=== PATIENT | male | born 1985 | race Caucasian/White ===

== ENCOUNTER 2022-01-08 17:22 | Inpatient (IN) | payer OTHER ==
[2022-01-08 18:12] VITALS: BMI 22.2
[2022-01-08] MEDS ORDERED: BISMUTH SUBSALICYLATE 524 MG/30 ML PO PRN (19:08)
[2022-01-08] MEDS ORDERED: NALOXONE HCL (KLOXXADO) 8 MG SPRAY NS PRN (19:08)
[2022-01-08] MEDS ORDERED: cloNIDine HCL 0.1 MG TABLET PO PRN (19:08)
[2022-01-08] MEDS ORDERED: methaDONE HCL 10 MG TABLET (FOR DETOX USE ONLY) PO ONE (19:08)
[2022-01-08] MEDS ORDERED: POLYETHYLENE GLYCOL (HEALTHYLAX) 3350 17 GM PACKET PO PRN (19:08)
[2022-01-08] MEDS ORDERED: LOPERAMIDE HCL 2 MG CAPSULE PO PRN (19:08)
[2022-01-08] MEDS ORDERED: DICYCLOMINE HCL 10 MG CAPSULE PO PRN (19:08)
[2022-01-08] MEDS ORDERED: BENZOCAINE/MENTHOL (CHLORASEPTIC ) LOZENGE MM PRN (19:08)
[2022-01-08] MEDS ORDERED: MAG HYDROX/AL HYDROX/SIMETH 30 ML UNIT-DOSE CUP PO PRN (19:08)
[2022-01-08] MEDS ORDERED: MAGNESIUM HYDROX 2400MG/30ML ORAL SUSPENSION 30 ML CUP PO PRN (19:08)
[2022-01-08] MEDS ORDERED: IBUPROFEN 400 MG TABLET (FP) PO PRN (19:08)
[2022-01-08] MEDS ORDERED: ACETAMINOPHEN 325 MG TABLET (FP) PO PRN ×2 (19:08)
[2022-01-08] MEDS ORDERED: P-EPHED 60MG/TRIPROLIDI 2.5MG TABLET PO PRN (20:07)
[2022-01-08] MEDS: MELATONIN 5 MG TABLETS PO SCH (22:15)
[2022-01-08] MEDS: NICOTINE 10 MG CARTRIDGE (INHALER) IH PRN (22:15)
[2022-01-08] MEDS: THIAMINE HCL 100 MG TABLET (FP) PO SCH (22:15)
[2022-01-08] MEDS: diazePAM 5 MG TABLET PO SCH (22:15)
[2022-01-09] MEDS: diazePAM 5 MG TABLET PO SCH ×4 (05:22→22:32)
[2022-01-09] MEDS: METHOCARBAMOL 500 MG TABLET PO PRN ×3 (05:25→22:32)
[2022-01-09] MEDS: PRENATAL VITAMINS W/ FOLIC ACID TABLET (FP) PO SCH (10:13)
[2022-01-09] MEDS: BACITRACIN 15 GM TUBE TOPICAL OINTMENT TP SCH ×2 (11:51→22:32)
[2022-01-09] MEDS: SODIUM CHLORIDE NASAL SPRAY 44 ML BOTTLE NS PRN (12:27)
[2022-01-09 12:50] LABS: ALBUMIN 3.4 g/dl (3.4-5.0); CALCIUM 9.1 mg/dL (8.5-10.1)
[2022-01-09 12:53] LABS: CREATININE 0.7 mg/dL (0.55-1.3)
[2022-01-09 12:54] LABS: BILIRUBIN,TOTAL 0.5 mg/dL (0.2-1); HEMATOCRIT 38.4 % (35.4-49); HEMOGLOBIN 13.2 GM/dL (11.7-16.9); MCH 33.3 pg (25.7-33.7); MCHC 34.4 g/dl (32.0-35.9); MEAN CELL VOLUME 96.8 fl (80-96); MEAN PLT VOLUME 9.5 fl (7.5-11.1); PLATELET COUNT 239 10^3/uL (134-434); RBC 3.97 M/mm3 (4.00-5.60); RDW 12.8 % (11.9-15.9); TOT PROT 6.2 g/dl (6.4-8.2); WHITE BLOOD COUNT 5.4 K/mm3 (4.0-10.0)
[2022-01-09] MEDS: NICOTINE 10 MG CARTRIDGE (INHALER) IH PRN (13:02)
[2022-01-09] MEDS: diazePAM 5 MG TABLET PO PRN ×2 (15:28→20:14)
[2022-01-09] MEDS: MELATONIN 5 MG TABLETS PO SCH (22:31)
[2022-01-09] MEDS: THIAMINE HCL 100 MG TABLET (FP) PO SCH (22:32)
[2022-01-10] MEDS: diazePAM 5 MG TABLET PO PRN ×3 (04:18→18:32)
[2022-01-10] MEDS: diazePAM 5 MG TABLET PO SCH ×3 (05:53→22:16)
[2022-01-10] MEDS: METHOCARBAMOL 500 MG TABLET PO PRN ×2 (09:39→18:32)
[2022-01-10] MEDS: PRENATAL VITAMINS W/ FOLIC ACID TABLET (FP) PO SCH (09:40)
[2022-01-10] MEDS: BACITRACIN 15 GM TUBE TOPICAL OINTMENT TP SCH ×2 (09:40→22:17)
[2022-01-10] MEDS: SODIUM CHLORIDE NASAL SPRAY 44 ML BOTTLE NS PRN (09:42)
[2022-01-10] MEDS ORDERED: methaDONE HCL 10 MG TABLET (FOR DETOX USE ONLY) PO ONE (10:00)
[2022-01-10] MEDS: NICOTINE 10 MG CARTRIDGE (INHALER) IH PRN (10:14)
[2022-01-10] MEDS: IBUPROFEN 600 MG TABLET (FP) PO PRN (16:08)
[2022-01-10 20:54] VITALS: RESP 18
[2022-01-10] MEDS: MELATONIN 5 MG TABLETS PO SCH (22:16)
[2022-01-10] MEDS: THIAMINE HCL 100 MG TABLET (FP) PO SCH (22:16)
[2022-01-11] MEDS: diazePAM 5 MG TABLET PO PRN (03:28)
[2022-01-11] MEDS: METHOCARBAMOL 500 MG TABLET PO PRN (03:28)
[2022-01-11] MEDS ORDERED: diazePAM 5 MG TABLET PO SCH (06:00)
[2022-01-11 08:53] VITALS: BP 124/66; PULSE 72; TEMP 98.3
[2022-01-11] MEDS: IBUPROFEN 600 MG TABLET (FP) PO PRN (09:22)
[2022-01-12] MEDS ORDERED: diazePAM 5 MG TABLET PO ONE (06:00)
[2022-01-12] MEDS ORDERED: methaDONE HCL 10 MG TABLET (FOR DETOX USE ONLY) PO ONE (10:00)
== END 2022-01-11 09:26 | disposition left against medical advice (07) | DRG 770 ==
LOC: YASAS 17:22 → Y3N 19:13
PROVIDERS: ADMIT Allergy & Immunology; ATTEND Surgery
PROC: HZ2ZZZZ Detoxification Services for Substance Abuse Treatment (ICD-10-PCS; principal; 2022-01-08)
DX: F11.23 Opioid dependence with withdrawal (principal); F13.232 Sedative, hypnotic or anxiolytic dependence with withdrawal with perceptual disturbance; F14.20 Cocaine dependence, uncomplicated; F12.20 Cannabis dependence, uncomplicated; F17.210 Nicotine dependence, cigarettes, uncomplicated
CPT/HCPCS: 36415; 80053; 85027; 86780; C9803-CS; U0003; U0005

== ENCOUNTER 2022-03-03 19:07 | Inpatient (IN) | payer OTHER ==
[2022-03-03 19:56] VITALS: BMI 19.3
[2022-03-03] MEDS ORDERED: NALOXONE HCL (KLOXXADO) 8 MG SPRAY NS PRN (21:02)
[2022-03-03] MEDS ORDERED: IBUPROFEN 400 MG TABLET (FP) PO PRN (21:02)
[2022-03-03] MEDS ORDERED: DICYCLOMINE HCL 10 MG CAPSULE PO PRN (21:02)
[2022-03-03] MEDS ORDERED: MAGNESIUM HYDROX 2400MG/30ML ORAL SUSPENSION 30 ML CUP PO PRN (21:02)
[2022-03-03] MEDS ORDERED: ONDANSETRON *ODT* 4 MG TABLET SL PRN (21:02)
[2022-03-03] MEDS ORDERED: ACETAMINOPHEN 325 MG TABLET (FP) PO PRN ×2 (21:02)
[2022-03-03] MEDS ORDERED: BENZOCAINE/MENTHOL (CHLORASEPTIC ) LOZENGE MM PRN (21:02)
[2022-03-03] MEDS ORDERED: MAG HYDROX/AL HYDROX/SIMETH 30 ML UNIT-DOSE CUP PO PRN (21:02)
[2022-03-03] MEDS ORDERED: IBUPROFEN 600 MG TABLET (FP) PO PRN (21:02)
[2022-03-03] MEDS ORDERED: POLYETHYLENE GLYCOL (HEALTHYLAX) 3350 17 GM PACKET PO PRN (21:02)
[2022-03-03] MEDS ORDERED: LOPERAMIDE HCL 2 MG CAPSULE PO PRN (21:02)
[2022-03-03] MEDS ORDERED: BISMUTH SUBSALICYLATE 524 MG/30 ML PO PRN (21:02)
[2022-03-03] MEDS ORDERED: cloNIDine HCL 0.1 MG TABLET PO PRN (21:07)
[2022-03-03] MEDS ORDERED: MELATONIN 5 MG TABLETS PO SCH (22:00)
[2022-03-03] MEDS ORDERED: methaDONE HCL 10 MG TABLET (FOR DETOX USE ONLY) PO ONE (22:02)
[2022-03-03] MEDS: METHOCARBAMOL 500 MG TABLET PO PRN (22:18)
[2022-03-03] MEDS: THIAMINE HCL 100 MG TABLET (FP) PO SCH (22:18)
[2022-03-03] MEDS: diazePAM 5 MG TABLET PO SCH (22:19)
[2022-03-04] MEDS: diazePAM 5 MG TABLET PO SCH ×4 (06:01→22:26)
[2022-03-04] MEDS: PRENATAL VITAMINS W/ FOLIC ACID TABLET (FP) PO SCH (10:20)
[2022-03-04] MEDS: METHOCARBAMOL 500 MG TABLET PO PRN ×2 (10:27→22:28)
[2022-03-04] MEDS: NICOTINE 10 MG CARTRIDGE (INHALER) IH PRN (10:29)
[2022-03-04] MEDS: NICOTINE 14 MG/24 HOURS TOPICAL PATCH TD SCH (10:30)
[2022-03-04 13:07] LABS: CHLORIDE 97 mmol/L (98-107); SODIUM 137 mmol/L (136-145)
[2022-03-04 13:10] LABS: CALCIUM 8.6 mg/dL (8.5-10.1)
[2022-03-04 13:11] LABS: ALBUMIN 3.7 g/dl (3.4-5.0); BLOOD UREA NITROGEN 21.1 mg/dL (7-18); CO2 34 mmol/L (21-32); GLUCOSE,RANDOM 100 mg/dL (74-106)
[2022-03-04 13:15] LABS: SGOT/AST 10 U/L (15-37); SGPT/ALT 20 U/L (13-61)
[2022-03-04 13:16] LABS: BILIRUBIN,TOTAL 0.9 mg/dL (0.2-1); TOT PROT 6.7 g/dl (6.4-8.2)
[2022-03-04 13:17] LABS: ALK PHOS 60 U/L (45-117)
[2022-03-04 13:19] LABS: ANION GAP 6 MMOL/L (8-16)
[2022-03-04 13:22] LABS: HEMATOCRIT 41.5 % (35.4-49); HEMOGLOBIN 14.4 GM/dL (11.7-16.9); MCH 32.2 pg (25.7-33.7); MCHC 34.6 g/dl (32.0-35.9); MEAN CELL VOLUME 93.1 fl (80-96); PLATELET COUNT 212 10^3/uL (134-434); RBC 4.46 M/mm3 (4.00-5.60); RDW 12.3 % (11.9-15.9); WHITE BLOOD COUNT 6.6 K/mm3 (4.0-10.0)
[2022-03-04] MEDS ORDERED: POTASSIUM CHLORIDE ORAL LIQUID 20 MEQ/15 ML PO ONE (14:00)
[2022-03-04] MEDS: POTASSIUM CHLORIDE ORAL LIQUID 20 MEQ/15 ML PO SCH (22:24)
[2022-03-04] MEDS: THIAMINE HCL 100 MG TABLET (FP) PO SCH (22:25)
[2022-03-04] MEDS: MELATONIN 5 MG TABLETS PO SCH (22:25)
[2022-03-05] MEDS: diazePAM 5 MG TABLET PO SCH ×3 (05:27→22:07)
[2022-03-05] MEDS ORDERED: methaDONE HCL 10 MG TABLET (FOR DETOX USE ONLY) PO ONE (10:00)
[2022-03-05] MEDS: diazePAM 5 MG TABLET PO PRN ×3 (10:24→19:52)
[2022-03-05] MEDS: PRENATAL VITAMINS W/ FOLIC ACID TABLET (FP) PO SCH (10:24)
[2022-03-05] MEDS: POTASSIUM CHLORIDE ORAL LIQUID 20 MEQ/15 ML PO SCH (10:25)
[2022-03-05] MEDS: NICOTINE 14 MG/24 HOURS TOPICAL PATCH TD SCH (10:25)
[2022-03-05] MEDS ORDERED: TETRAHYDROZOLINE HCL EYE DROPS OD PRN (13:10)
[2022-03-05] MEDS: NICOTINE 10 MG CARTRIDGE (INHALER) IH PRN (13:53)
[2022-03-05] MEDS: METHOCARBAMOL 500 MG TABLET PO PRN (22:06)
[2022-03-05] MEDS: MELATONIN 5 MG TABLETS PO SCH (22:06)
[2022-03-05] MEDS: THIAMINE HCL 100 MG TABLET (FP) PO SCH (22:06)
[2022-03-06] MEDS: diazePAM 5 MG TABLET PO PRN ×2 (01:09→10:30)
[2022-03-06] MEDS: diazePAM 5 MG TABLET PO SCH ×2 (05:39→18:00)
[2022-03-06] MEDS: NICOTINE 14 MG/24 HOURS TOPICAL PATCH TD SCH (10:35)
[2022-03-06] MEDS: PRENATAL VITAMINS W/ FOLIC ACID TABLET (FP) PO SCH (10:35)
[2022-03-06] MEDS: NICOTINE 10 MG CARTRIDGE (INHALER) IH PRN (15:13)
[2022-03-06] MEDS: METHOCARBAMOL 500 MG TABLET PO PRN ×2 (15:14→22:08)
[2022-03-06] MEDS: THIAMINE HCL 100 MG TABLET (FP) PO SCH (22:08)
[2022-03-06] MEDS: MELATONIN 5 MG TABLETS PO SCH (22:08)
[2022-03-07] MEDS ORDERED: diazePAM 5 MG TABLET PO ONE (06:00)
[2022-03-07] MEDS: NICOTINE 14 MG/24 HOURS TOPICAL PATCH TD SCH (09:46)
[2022-03-07] MEDS: PRENATAL VITAMINS W/ FOLIC ACID TABLET (FP) PO SCH (09:46)
[2022-03-07] MEDS: NICOTINE 10 MG CARTRIDGE (INHALER) IH PRN ×2 (09:48→22:56)
[2022-03-07] MEDS ORDERED: methaDONE HCL 10 MG TABLET (FOR DETOX USE ONLY) PO ONE (10:00)
[2022-03-07] MEDS: METHOCARBAMOL 500 MG TABLET PO PRN ×2 (15:44→22:28)
[2022-03-07] MEDS: MELATONIN 5 MG TABLETS PO SCH (22:26)
[2022-03-07] MEDS: THIAMINE HCL 100 MG TABLET (FP) PO SCH (22:26)
[2022-03-08 06:25] VITALS: RESP 16; TEMP 98.2
[2022-03-08 09:10] VITALS: BP 129/78; PULSE 96
== END 2022-03-08 08:57 | disposition home or self-care (01) | DRG 773 ==
LOC: YASAS 19:07 → Y3N 21:19
PROVIDERS: ADMIT Allergy & Immunology; ATTEND Surgery
PROC: HZ2ZZZZ Detoxification Services for Substance Abuse Treatment (ICD-10-PCS; principal; 2022-03-03)
DX: F11.23 Opioid dependence with withdrawal (principal); F13.232 Sedative, hypnotic or anxiolytic dependence with withdrawal with perceptual disturbance; F12.20 Cannabis dependence, uncomplicated; F17.210 Nicotine dependence, cigarettes, uncomplicated; F32.A Depression, unspecified; E87.6 Hypokalemia
CPT/HCPCS: 36415; 80053; 84132; 85027; 86780; 93005; 93010; C9803-CS; U0003; U0005

== ENCOUNTER 2022-07-08 16:59 | Inpatient (IN) | payer OTHER ==
[2022-07-08 19:11] VITALS: BMI 20.5
[2022-07-08] MEDS ORDERED: P-EPHED 60MG/TRIPROLIDI 2.5MG TABLET PO PRN (21:01)
[2022-07-08] MEDS ORDERED: NICOTINE POLACRILEX 2 MG GUM BUC PRN (21:01)
[2022-07-08] MEDS ORDERED: IBUPROFEN 400 MG TABLET (FP) PO PRN (21:01)
[2022-07-08] MEDS ORDERED: ONDANSETRON *ODT* 4 MG TABLET SL PRN (21:01)
[2022-07-08] MEDS ORDERED: MAGNESIUM HYDROX 2400MG/30ML ORAL SUSPENSION 30 ML CUP PO PRN (21:01)
[2022-07-08] MEDS ORDERED: LOPERAMIDE HCL 2 MG CAPSULE PO PRN (21:01)
[2022-07-08] MEDS ORDERED: NALOXONE HCL (KLOXXADO) 8 MG SPRAY NS PRN (21:01)
[2022-07-08] MEDS ORDERED: ACETAMINOPHEN 325 MG TABLET (FP) PO PRN ×2 (21:01)
[2022-07-08] MEDS ORDERED: BENZOCAINE/MENTHOL (CHLORASEPTIC ) LOZENGE MM PRN (21:01)
[2022-07-08] MEDS ORDERED: DICYCLOMINE HCL 10 MG CAPSULE PO PRN (21:01)
[2022-07-08] MEDS ORDERED: POLYETHYLENE GLYCOL (HEALTHYLAX) 3350 17 GM PACKET PO PRN (21:01)
[2022-07-08] MEDS ORDERED: BENZONATATE 200 MG CAPSULE PO PRN (21:01)
[2022-07-08] MEDS ORDERED: MAG HYDROX/AL HYDROX/SIMETH 30 ML UNIT-DOSE CUP PO PRN (21:01)
[2022-07-08] MEDS ORDERED: guaiFENesin 600 MG TABLET.ER (FP) PO PRN (21:01)
[2022-07-08] MEDS ORDERED: NALOXONE HCL 0.4 MG/ML VIAL IM PRN (21:01)
[2022-07-08] MEDS ORDERED: BISMUTH SUBSALICYLATE 524 MG/30 ML PO PRN (21:01)
[2022-07-08] MEDS ORDERED: diazePAM 5 MG TABLET PO PRN (21:03)
[2022-07-08] MEDS ORDERED: cloNIDine HCL 0.1 MG TABLET PO PRN (21:04)
[2022-07-08] MEDS ORDERED: methaDONE HCL 10 MG TABLET (FOR DETOX USE ONLY) PO ONE (21:04)
[2022-07-08] MEDS ORDERED: methaDONE HCL 10 MG TABLET (FOR DETOX USE ONLY) ONE (21:45)
[2022-07-08] MEDS ORDERED: ACETAMINOPHEN 325 MG TABLET (FP) ONE (21:46)
[2022-07-08] MEDS: diazePAM 5 MG TABLET PO SCH (22:36)
[2022-07-08] MEDS: MELATONIN 5 MG TABLETS PO SCH (22:36)
[2022-07-08] MEDS: METHOCARBAMOL 500 MG TABLET PO PRN (22:36)
[2022-07-08] MEDS: THIAMINE HCL 100 MG TABLET (FP) PO SCH (22:36)
[2022-07-09] MEDS: FLUTICASONE PROP 0.05% 16 GM NASAL SPRAY NS SCH ×3 (00:40→22:11)
[2022-07-09] MEDS: diazePAM 5 MG TABLET PO SCH ×4 (05:29→22:11)
[2022-07-09] MEDS ORDERED: methaDONE HCL 10 MG TABLET (FOR DETOX USE ONLY) PO ONE (10:00)
[2022-07-09] MEDS: PRENATAL VITAMINS W/ FOLIC ACID TABLET (FP) PO SCH (10:02)
[2022-07-09] MEDS: NICOTINE 14 MG/24 HOURS TOPICAL PATCH TD SCH (10:05)
[2022-07-09] MEDS: METHOCARBAMOL 500 MG TABLET PO PRN ×2 (10:25→22:11)
[2022-07-09 11:39] LABS: HEMATOCRIT 40.4 % (35.4-49); MCH 32.8 pg (25.7-33.7); MCHC 34.5 g/dl (32.0-35.9); MEAN CELL VOLUME 95.1 fl (80-96); MEAN PLT VOLUME 11.6 fl (7.5-11.1); PLATELET COUNT 164 10^3/uL (134-434); RBC 4.25 M/mm3 (4.00-5.60); RDW 12.7 % (11.9-15.9); WHITE BLOOD COUNT 4.6 K/mm3 (4.0-10.0)
[2022-07-09 11:48] LABS: POTASSIUM 4.1 mmol/L (3.5-5.1)
[2022-07-09 11:50] LABS: CALCIUM 9.2 mg/dL (8.5-10.1)
[2022-07-09 11:51] LABS: ALBUMIN 3.5 g/dl (3.4-5.0); BLOOD UREA NITROGEN 12.8 mg/dL (7-18)
[2022-07-09 11:53] LABS: CREATININE 0.7 mg/dL (0.55-1.3)
[2022-07-09 11:55] LABS: BILIRUBIN,TOTAL 0.4 mg/dL (0.2-1); TOT PROT 6.1 g/dl (6.4-8.2)
[2022-07-09] MEDS: THIAMINE HCL 100 MG TABLET (FP) PO SCH (22:11)
[2022-07-09] MEDS: MELATONIN 5 MG TABLETS PO SCH (22:11)
[2022-07-10] MEDS: diazePAM 5 MG TABLET PO SCH ×3 (06:07→22:04)
[2022-07-10] MEDS: IBUPROFEN 600 MG TABLET (FP) PO PRN (10:05)
[2022-07-10] MEDS: FLUTICASONE PROP 0.05% 16 GM NASAL SPRAY NS SCH ×2 (10:06→22:04)
[2022-07-10] MEDS: PRENATAL VITAMINS W/ FOLIC ACID TABLET (FP) PO SCH (10:06)
[2022-07-10] MEDS: NICOTINE 14 MG/24 HOURS TOPICAL PATCH TD SCH (10:08)
[2022-07-10] MEDS: METHOCARBAMOL 500 MG TABLET PO PRN ×2 (11:33→22:05)
[2022-07-10] MEDS: METHYL SALICYLATE/MENTHOL OINT 30 GM TUBE TP SCH (22:04)
[2022-07-10] MEDS: MELATONIN 5 MG TABLETS PO SCH (22:05)
[2022-07-10] MEDS: THIAMINE HCL 100 MG TABLET (FP) PO SCH (22:05)
[2022-07-11] MEDS: diazePAM 5 MG TABLET PO SCH ×2 (05:47→17:40)
[2022-07-11] MEDS ORDERED: methaDONE HCL 10 MG TABLET (FOR DETOX USE ONLY) PO ONE (10:00)
[2022-07-11] MEDS: PRENATAL VITAMINS W/ FOLIC ACID TABLET (FP) PO SCH (10:05)
[2022-07-11] MEDS: IBUPROFEN 600 MG TABLET (FP) PO PRN (10:07)
[2022-07-11] MEDS: METHOCARBAMOL 500 MG TABLET PO PRN ×2 (10:09→22:21)
[2022-07-11] MEDS: METHYL SALICYLATE/MENTHOL OINT 30 GM TUBE TP SCH ×2 (10:21→22:21)
[2022-07-11] MEDS: FLUTICASONE PROP 0.05% 16 GM NASAL SPRAY NS SCH ×2 (10:21→22:21)
[2022-07-11] MEDS: NICOTINE 14 MG/24 HOURS TOPICAL PATCH TD SCH (10:22)
[2022-07-11 21:30] VITALS: PULSE 79
[2022-07-11] MEDS: THIAMINE HCL 100 MG TABLET (FP) PO SCH (22:21)
[2022-07-11] MEDS: MELATONIN 5 MG TABLETS PO SCH (22:21)
[2022-07-12] MEDS ORDERED: methaDONE HCL 10 MG TABLET (FOR DETOX USE ONLY) PO ONE (05:00)
[2022-07-12] MEDS ORDERED: diazePAM 5 MG TABLET PO ONE (06:00)
[2022-07-12 06:18] VITALS: BP 141/71; RESP 16; TEMP 97.8
== END 2022-07-12 06:45 | disposition home or self-care (01) | DRG 773 ==
LOC: YASAS 16:59 → Y3N 21:33
PROVIDERS: ADMIT Allergy & Immunology; ATTEND Surgery
PROC: HZ2ZZZZ Detoxification Services for Substance Abuse Treatment (ICD-10-PCS; principal; 2022-07-08)
DX: F11.23 Opioid dependence with withdrawal (principal); F10.230 Alcohol dependence with withdrawal, uncomplicated; F13.232 Sedative, hypnotic or anxiolytic dependence with withdrawal with perceptual disturbance; F12.20 Cannabis dependence, uncomplicated; F17.210 Nicotine dependence, cigarettes, uncomplicated
CPT/HCPCS: 36415; 80053; 85027; 86780; 87811; C9803-CS; U0003; U0005

== ENCOUNTER 2022-09-26 15:19 | Inpatient (IN) | payer OTHER ==
[2022-09-26 16:57] VITALS: BMI 21.4
[2022-09-26] MEDS ORDERED: LOPERAMIDE HCL 2 MG CAPSULE PO PRN (18:06)
[2022-09-26] MEDS ORDERED: POLYETHYLENE GLYCOL (HEALTHYLAX) 3350 17 GM PACKET PO PRN (18:06)
[2022-09-26] MEDS ORDERED: DICYCLOMINE HCL 10 MG CAPSULE PO PRN (18:06)
[2022-09-26] MEDS ORDERED: NALOXONE HCL (KLOXXADO) 8 MG SPRAY NS PRN (18:06)
[2022-09-26] MEDS ORDERED: guaiFENesin 600 MG TABLET.ER (FP) PO PRN (18:06)
[2022-09-26] MEDS ORDERED: NALOXONE HCL 0.4 MG/ML VIAL IM PRN (18:06)
[2022-09-26] MEDS ORDERED: hydrOXYzine PAMOATE 25 MG CAPSULE (FP) PO PRN (18:06)
[2022-09-26] MEDS ORDERED: BISMUTH SUBSALICYLATE 524 MG/30 ML PO PRN (18:06)
[2022-09-26] MEDS ORDERED: ACETAMINOPHEN 325 MG TABLET (FP) PO PRN (18:06)
[2022-09-26] MEDS ORDERED: IBUPROFEN 400 MG TABLET (FP) PO PRN (18:06)
[2022-09-26] MEDS ORDERED: MAGNESIUM HYDROX 2400MG/30ML ORAL SUSPENSION 30 ML CUP PO PRN (18:06)
[2022-09-26] MEDS ORDERED: MAG HYDROX/AL HYDROX/SIMETH 30 ML UNIT-DOSE CUP PO PRN (18:06)
[2022-09-26] MEDS ORDERED: ONDANSETRON *ODT* 4 MG TABLET SL PRN (18:06)
[2022-09-26] MEDS ORDERED: BENZONATATE 200 MG CAPSULE PO PRN (18:06)
[2022-09-26] MEDS ORDERED: BENZOCAINE/MENTHOL (CHLORASEPTIC ) LOZENGE MM PRN (18:06)
[2022-09-26] MEDS: diazePAM 5 MG TABLET PO PRN (19:19)
[2022-09-26] MEDS: THIAMINE HCL 100 MG TABLET (FP) PO SCH (22:31)
[2022-09-26] MEDS: METHOCARBAMOL 500 MG TABLET PO PRN (22:31)
[2022-09-26] MEDS: diazePAM 5 MG TABLET PO SCH (22:31)
[2022-09-26] MEDS: MELATONIN 5 MG TABLETS PO SCH (22:31)
[2022-09-27] MEDS: diazePAM 5 MG TABLET PO SCH ×4 (05:42→22:33)
[2022-09-27] MEDS: PRENATAL VITAMINS W/ FOLIC ACID TABLET (FP) PO SCH (10:10)
[2022-09-27] MEDS: METHOCARBAMOL 500 MG TABLET PO PRN ×3 (10:12→22:34)
[2022-09-27 10:42] LABS: MCH 31.8 pg (25.7-33.7); MCHC 33.5 g/dl (32.0-35.9); MEAN CELL VOLUME 94.9 fl (80-96); MEAN PLT VOLUME 10.3 fl (7.5-11.1); PLATELET COUNT 207 10^3/uL (134-434); RBC 4.42 M/mm3 (4.00-5.60); RDW 12.8 % (11.9-15.9)
[2022-09-27 10:46] LABS: POTASSIUM 4.2 mmol/L (3.5-5.1)
[2022-09-27 10:49] LABS: ALBUMIN 3.7 g/dl (3.4-5.0); BLOOD UREA NITROGEN 9.5 mg/dL (7-18); CALCIUM 9.3 mg/dL (8.5-10.1)
[2022-09-27 10:52] LABS: CREATININE 0.8 mg/dL (0.55-1.3)
[2022-09-27 10:53] LABS: TOT PROT 6.8 g/dl (6.4-8.2)
[2022-09-27 10:54] LABS: BILIRUBIN,TOTAL 0.8 mg/dL (0.2-1)
[2022-09-27] MEDS: IBUPROFEN 600 MG TABLET (FP) PO PRN (14:03)
[2022-09-27] MEDS: NICOTINE POLACRILEX 2 MG GUM BUC PRN ×2 (16:02→22:36)
[2022-09-27] MEDS: THIAMINE HCL 100 MG TABLET (FP) PO SCH (22:32)
[2022-09-27] MEDS: MELATONIN 5 MG TABLETS PO SCH (22:32)
[2022-09-28] MEDS: diazePAM 5 MG TABLET PO PRN ×2 (00:51→08:52)
[2022-09-28] MEDS: FLUTICASONE PROP 0.05% 16 GM NASAL SPRAY NS SCH ×2 (01:11→09:42)
[2022-09-28] MEDS ORDERED: diazePAM 5 MG TABLET PO SCH (06:00)
[2022-09-28] MEDS: IBUPROFEN 600 MG TABLET (FP) PO PRN (08:52)
[2022-09-28] MEDS: METHOCARBAMOL 500 MG TABLET PO PRN (08:52)
[2022-09-28 09:23] VITALS: BP 137/84; PULSE 77; RESP 18; TEMP 97.6
[2022-09-28] MEDS: PRENATAL VITAMINS W/ FOLIC ACID TABLET (FP) PO SCH (09:42)
[2022-09-29] MEDS ORDERED: diazePAM 5 MG TABLET PO SCH (06:00)
[2022-09-30] MEDS ORDERED: diazePAM 5 MG TABLET PO ONE (06:00)
== END 2022-09-28 10:38 | disposition left against medical advice (07) | DRG 770 ==
LOC: YASAS 15:19 → Y6N 18:31
PROVIDERS: ADMIT Allergy & Immunology; ATTEND Allergy & Immunology
PROC: HZ2ZZZZ Detoxification Services for Substance Abuse Treatment (ICD-10-PCS; principal; 2022-09-26)
DX: F11.23 Opioid dependence with withdrawal (principal); F13.232 Sedative, hypnotic or anxiolytic dependence with withdrawal with perceptual disturbance; F12.20 Cannabis dependence, uncomplicated; F17.210 Nicotine dependence, cigarettes, uncomplicated; R09.81 Nasal congestion
CPT/HCPCS: 36415; 80053; 85027; 86780; 87635

== ENCOUNTER 2023-04-28 21:23 | Inpatient (IN) | payer OTHER ==
[2023-04-28 22:06] VITALS: BMI 21.7
[2023-04-28] MEDS ORDERED: guaiFENesin 600 MG TABLET.ER (FP) PO PRN (22:31)
[2023-04-28] MEDS ORDERED: MAGNESIUM HYDROX 2400MG/30ML ORAL SUSPENSION 30 ML CUP PO PRN (22:31)
[2023-04-28] MEDS ORDERED: BENZONATATE 200 MG CAPSULE PO PRN (22:31)
[2023-04-28] MEDS ORDERED: MAG HYDROX/AL HYDROX/SIMETH 30 ML UNIT-DOSE CUP PO PRN (22:31)
[2023-04-28] MEDS ORDERED: DICYCLOMINE HCL 10 MG CAPSULE PO PRN (22:31)
[2023-04-28] MEDS ORDERED: BISMUTH SUBSALICYLATE 524 MG/30 ML PO PRN (22:31)
[2023-04-28] MEDS ORDERED: ONDANSETRON *ODT* 4 MG TABLET SL PRN (22:31)
[2023-04-28] MEDS ORDERED: NALOXONE HCL (KLOXXADO) 8 MG SPRAY NS PRN (22:31)
[2023-04-28] MEDS ORDERED: NALOXONE HCL 0.4 MG/ML VIAL IM PRN (22:31)
[2023-04-28] MEDS ORDERED: POLYETHYLENE GLYCOL (HEALTHYLAX) 3350 17 GM PACKET PO PRN (22:31)
[2023-04-28] MEDS ORDERED: ACETAMINOPHEN 325 MG TABLET (FP) PO PRN (22:31)
[2023-04-28] MEDS ORDERED: IBUPROFEN 400 MG TABLET (FP) PO PRN (22:31)
[2023-04-29] MEDS ORDERED: diazePAM 5 MG TABLET PO PRN (09:59)
[2023-04-29] MEDS: methaDONE HCL 10 MG TABLET (FOR DETOX USE ONLY) PO ONE (10:34)
[2023-04-29] MEDS: diazePAM 5 MG TABLET PO SCH (10:34)
[2023-04-29] MEDS: NICOTINE 14 MG/24 HOURS TOPICAL PATCH TD SCH (10:34)
[2023-04-29] MEDS: PRENATAL VITAMINS W/ FOLIC ACID TABLET (FP) PO SCH (10:34)
[2023-04-29 12:13] LABS: HEMATOCRIT 41.6 % (35.4-49); HEMOGLOBIN 13.9 GM/dL (11.7-16.9); MCH 31.9 pg (25.7-33.7); MCHC 33.4 g/dl (32.0-35.9); MEAN CELL VOLUME 95.3 fl (80-96); MEAN PLT VOLUME 9.2 fl (7.5-11.1); PLATELET COUNT 266 10^3/uL (134-434); RBC 4.36 M/mm3 (4.00-5.60); WHITE BLOOD COUNT 5.4 K/mm3 (4.0-10.0)
[2023-04-29 12:18] LABS: POTASSIUM 3.9 mmol/L (3.5-5.1)
[2023-04-29 12:29] LABS: ALBUMIN 3.4 g/dl (3.4-5.0); BLOOD UREA NITROGEN 16.1 mg/dL (7-18); CALCIUM 9.1 mg/dL (8.5-10.1)
[2023-04-29 12:32] LABS: CREATININE 0.7 mg/dL (0.55-1.3)
[2023-04-29 12:34] LABS: BILIRUBIN,TOTAL 0.2 mg/dL (0.2-1); TOT PROT 6.7 g/dl (6.4-8.2)
[2023-04-29] MEDS: OXYMETAZOLINE 0.05% NASAL SOLUTION 15 ML BOTTLE NS PRN (15:06)
[2023-04-29] MEDS: hydrOXYzine PAMOATE 25 MG CAPSULE (FP) PO PRN (15:16)
[2023-04-29] MEDS: METHOCARBAMOL 500 MG TABLET PO ONE (15:18)
[2023-04-29] MEDS ORDERED: NICOTINE 14 MG/24 HOURS TOPICAL PATCH TD PRN (15:40)
[2023-04-29] MEDS: NICOTINE POLACRILEX 4 MG GUM BUC PRN (15:45)
[2023-04-29] MEDS: IBUPROFEN 600 MG TABLET (FP) PO PRN (16:24)
[2023-04-29] MEDS: BENZOCAINE/MENTHOL (CHLORASEPTIC ) LOZENGE MM PRN (17:58)
[2023-04-29] MEDS: MELATONIN 5 MG TABLETS PO SCH (22:08)
[2023-04-29] MEDS: cloNIDine HCL 0.1 MG TABLET PO PRN (22:08)
[2023-04-29] MEDS: THIAMINE HCL 100 MG TABLET (FP) PO SCH (22:08)
[2023-04-29] MEDS: BACITRACIN 0.9 GM PACKET TP SCH (23:00)
[2023-04-30] MEDS: diazePAM 5 MG TABLET PO PRN (13:20)
[2023-04-30] MEDS: diazePAM 5 MG TABLET PO SCH (18:13)
[2023-05-01] MEDS: diazePAM 5 MG TABLET PO SCH (05:43)
[2023-05-01] MEDS: methaDONE HCL 10 MG TABLET (FOR DETOX USE ONLY) PO ONE (09:59)
[2023-05-02] MEDS: diazePAM 5 MG TABLET PO SCH (05:41)
[2023-05-02] MEDS: LOPERAMIDE HCL 2 MG CAPSULE PO PRN (08:25)
[2023-05-02 09:21] VITALS: TEMP 98.4
[2023-05-02 13:05] VITALS: BP 137/79; PULSE 70; RESP 18
[2023-05-02] MEDS: NICOTINE POLACRILEX 2 MG LOZENGE BC PRN (13:28)
[2023-05-03] MEDS ORDERED: diazePAM 5 MG TABLET PO ONE (06:00)
[2023-05-03] MEDS ORDERED: methaDONE HCL 10 MG TABLET (FOR DETOX USE ONLY) PO ONE (10:00)
== END 2023-05-02 14:45 | disposition home or self-care (01) | DRG 773 ==
LOC: YASAS 21:23 → Y6N 22:53
PROVIDERS: ADMIT Allergy & Immunology; ATTEND Surgery
PROC: HZ2ZZZZ Detoxification Services for Substance Abuse Treatment (ICD-10-PCS; principal; 2023-04-28)
DX: F11.23 Opioid dependence with withdrawal (principal); F13.230 Sedative, hypnotic or anxiolytic dependence with withdrawal, uncomplicated; F10.20 Alcohol dependence, uncomplicated; F16.10 Hallucinogen abuse, uncomplicated; F12.10 Cannabis abuse, uncomplicated; F17.210 Nicotine dependence, cigarettes, uncomplicated; F19.24 Other psychoactive substance dependence with psychoactive substance-induced mood disorder; F42.4 Excoriation (skin-picking) disorder
CPT/HCPCS: 36415; 80053; 80305; 85027; 86780; 87635